=== PATIENT | female | born 1960 | race Caucasian/White ===

== ENCOUNTER 2017-03-26 20:45 | Emergency (ER) | payer BC ==
--- NOTE | 2017-03-26 20:49 | EDM.PDOC ---
ED HPI GENERAL MEDICAL PROBLEM - General Chief Complaint: Chest Pain Stated Complaint: [facility] Time Seen by Provider: 03/26/17 20:49 - History of Present Illness INITIAL COMMENTS - FREE TEXT/NARRATIVE: 56-year-old female presents emergency room with chest pain. She is brought in by EMS. Patient's pain started around 6:30 this evening the patient was resting and had this pain that started between her shoulder blades and radiated to the front of her chest and into the substernal area she had pain that radiated into the neck and briefly into the left jaw she did not have pain radiating into her arms she had some nausea with this mild diaphoresis. Patient has a history of type 2 diabetes hypertension and hyperlipidemia she's been off her hypertension and hyperlipidemia medications since the spring because of cost she has been taking a baby aspirin and her metformin however. With the onset of the chest pain the patient did take 325 mg of aspirin The patient used to smoke she quit no 5 however she had a relapse year or 2 ago for a brief period but didn't quit again. Family history is remarkable for a mom with high blood pressure and at some point she did have a heart attack but the patient is not too familiar with the details. Patient is not aware of her father's family history. Middle Chest Pain Score (Numeric/FACES): 4 - Related Data Allergies Allergy/AdvReac Type Severity Reaction Status Date / Time hydrochlorothiazide AdvReac Muscle Verified 03/26/17 20:51 Aches losartan [Losartan] AdvReac Muscle Verified 03/26/17 20:51 Aches Home Meds: Home Meds Aspirin [Halfprin] 81 mg PO DAILY 04/17/14 [History] metFORMIN [Glucophage] 500 mg PO BIDAC 04/17/14 [History] Esomeprazole Magnesium [Nexium] 40 mg PO DAILY 03/26/17 [History] Social & Family History - Tobacco Use Smoking Status *Q: Former Smoker - Alcohol Use Days Per Week of Alcohol Use: 0 Number of Drinks Per Day: 0 Total Drinks Per Week: 0 - Recreational Drug Use Recreational Drug Use: No Drug Use in Last 12 Months: No ED ROS GENERAL - Review of Systems Review Of Systems: See Below Constitutional: Reports: No Symptoms HEENT: Reports: No Symptoms Respiratory: Reports: No Symptoms Cardiovascular: Reports: Chest Pain. Denies: Edema, Palpitations Endocrine: Reports: No Symptoms GI/Abdominal: Reports: Nausea. Denies: No Symptoms, Abdominal Pain, Vomiting : Reports: No Symptoms Neurological: Reports: No Symptoms ED EXAM, GENERAL - Physical Exam Exam: See Below Exam Limited By: No Limitations General Appearance: Alert, No Apparent Distress Ear Exam: Right Ear: TM normal Head: Atraumatic, Normocephalic Neck: Normal Inspection, Supple, Non-Tender, Full Range of Motion, Other (No JVD ). No: Lymphadenopathy (L), Lymphadenopathy (R) Respiratory/Chest: No Respiratory Distress, Lungs Clear, Normal Breath Sounds Cardiovascular: Regular Rate, Rhythm, No Edema, No Murmur GI/Abdominal: Normal Bowel Sounds, Soft, Non-Tender, Other (He has a large midabdominal hernia). No: Distended, Guarding, Rigid, Rebound Neurological: Alert, Oriented, Normal Cognition Skin Exam: Warm, Dry, Intact, Normal Color EKG INTERPRETATION EKG Date: 03/26/17 Rhythm: NSR [place]: Normal P-Wave: Present QRS: Other (Poor R wave progression could be due to body habitus) ST-T: Other (Nonspecific nondiagnostic changes) QT: Normal Comparison: NA - No Prior EKG Course - Vital Signs Last Recorded V/S: Last Vital Signs Temp 35.9 C 03/26/17 20:46 Pulse 96 03/26/17 20:46 Resp 16 03/26/17 20:46 BP 143/65 H 03/26/17 21:10 Pulse Ox 97 03/26/17 20:46 - Orders/Labs/Meds Orders: Active Orders 24 hr Category Date Time Status Chest 1V Frontal [CR] Stat Exams 03/26/17 21:00 Taken Nitroglycerin [Nitrostat] Med 03/26/17 21:02 Active 0.4 mg SL Q5M PRN Sodium Chloride 0.9% [Normal Saline] 1,000 ml Med 03/26/17 21:15 Active IV ASDIRECTED Medication Orders Sodium Chloride (Normal Saline) 1,000 mls @ 50 mls/hr IV ASDIRECTED TOMMIE Last Admin: 03/26/17 21:09 Dose: 50 mls/hr Nitroglycerin (Nitrostat) 0.4 mg SL Q5M PRN PRN Reason: Chest Pain Last Admin: 03/26/17 21:10 Dose: 0.4 mg Labs: Laboratory Tests 03/26/17 03/26/17 03/26/17 Range/Units 21:00 21:00 21:00 WBC 15.11 H (3.98-10.04) K/mm3 RBC 5.11 (3.98-5.22) M/mm3 Hgb 13.0 (11.2-15.7) gm/L Hct 39.9 (34.1-44.9) % MCV 78.1 L (79.4-94.8) fl MCH 25.4 L (25.6-32.2) pg MCHC 32.6 (32.2-35.5) g/dl RDW Std Deviation 41.6 (36.4-46.3) fL Plt Count 371 H (182-369) K/mm3 MPV 10.3 (9.4-12.3) fl Neutrophils % (Manual) 81 H (40-60) % Band Neutrophils % 0 (0-10) % Lymphocytes % (Manual) 8 L (20-40) % Atypical Lymphs % 1 % Monocytes % (Manual) 3 (2-10) % Eosinophils % (Manual) 5 (0.7-5.8) % Basophils % (Manual) 2 H (0.1-1.2) Platelet Estimate Adequate Plt Morphology Comment Normal RBC Morph Comment Normal PT 9.5 (8.0-13.0) SECONDS INR 0.88 APTT 26 (22-36) SECONDS Sodium 141 (136-145) mEq/L Potassium 4.4 (3.5-5.1) mEq/L Chloride 105 (98-107) mEq/L Carbon Dioxide 26 (21-32) mEq/L Anion Gap 14.4 (5-15) BUN 19 H (7-18) mg/dL Creatinine 1.1 H (0.55-1.02) mg/dL Est Cr Clr Drug Dosing 47.24 mL/min Estimated GFR (MDRD) 51 (>60) mL/min BUN/Creatinine Ratio 17.3 (14-18) Glucose 148 H (74-106) mg/dL Calcium 9.2 (8.5-10.1) mg/dL Total Bilirubin 0.5 (0.2-1.0) mg/dL AST 51 H (15-37) U/L ALT 43 (14-59) U/L Alkaline Phosphatase 88 (46-116) U/L Troponin I < 0.017 (0.00-0.056) ng/mL Total Protein 7.5 (6.4-8.2) g/dl Albumin 3.2 L (3.4-5.0) g/dl Globulin 4.3 gm/dL Albumin/Globulin Ratio 0.7 L (1-2) 11/24/17 Range/Units 23:24 WBC (3.98-10.04) K/mm3 RBC (3.98-5.22) M/mm3 Hgb (11.2-15.7) gm/L Hct (34.1-44.9) % MCV (79.4-94.8) fl MCH (25.6-32.2) pg MCHC (32.2-35.5) g/dl RDW Std Deviation (36.4-46.3) fL Plt Count (182-369) K/mm3 MPV (9.4-12.3) fl Neutrophils % (Manual) (40-60) % Band Neutrophils % (0-10) % Lymphocytes % (Manual) (20-40) % Atypical Lymphs % % Monocytes % (Manual) (2-10) % Eosinophils % (Manual) (0.7-5.8) % Basophils % (Manual) (0.1-1.2) Platelet Estimate Plt Morphology Comment RBC Morph Comment PT (8.0-13.0) SECONDS INR APTT (22-36) SECONDS Sodium (136-145) mEq/L Potassium (3.5-5.1) mEq/L Chloride (98-107) mEq/L Carbon Dioxide (21-32) mEq/L Anion Gap (5-15) BUN (7-18) mg/dL Creatinine (0.55-1.02) mg/dL Est Cr Clr Drug Dosing mL/min Estimated GFR (MDRD) (>60) mL/min BUN/Creatinine Ratio (14-18) Glucose (74-106) mg/dL Calcium (8.5-10.1) mg/dL Total Bilirubin (0.2-1.0) mg/dL AST (15-37) U/L ALT (14-59) U/L Alkaline Phosphatase (46-116) U/L Troponin I < 0.017 (0.00-0.056) ng/mL Total Protein (6.4-8.2) g/dl Albumin (3.4-5.0) g/dl Globulin gm/dL Albumin/Globulin Ratio (1-2) Meds: Medications Generic Name Dose Route Start Last Admin Trade Name Freq PRN Reason Stop Dose Admin Sodium Chloride 1,000 mls @ 50 mls/hr 03/26/17 21:15 03/26/17 21:09 Normal Saline IV 50 mls/hr ASDIRECTED TOMMIE Administration Nitroglycerin 0.4 mg 03/26/17 21:02 03/26/17 21:10 Nitrostat SL 0.4 mg Q5M PRN Administration Chest Pain - Re-Assessments/Exams Free Text/Narrative Re-Assessment/Exam: 03/26/17 23:11 Patient is doing much better at this point. She received a single nitroglycerin her pain was about a 2 shortly after admission and she's been for the most part pain-free ever since her EKG shows no acute changes troponin is negative. Chest x-ray no acute changes. Discussed admission patient is not willing to pursue this at this time however she is in agreement checking a second troponin we've also discussed outpatient stress testing. 03/27/17 00:58 Second troponin negative patient still insistent on going home she's been symptom-free. She still in agreement to getting a outpatient stress test done and will follow up with her regular provider early this next week Departure - Departure Time of Disposition: 00:58 Disposition: Home, Self-Care 01 Clinical Impression: Chest pain Forms: ED Department Discharge Additional Instructions: Return to emergency room if any questions problems worsening symptoms. Follow-up with your regular provider on Wednesday or Wednesday. Discuss getting back on your routine medications. Get the stress test done that we discussed. Follow-up again with your regular provider after this is done to get the results. - My Orders Last 24 Hours: My Active Orders 03/26/17 21:00 Chest 1V Frontal [CR] Stat 03/26/17 21:02 Nitroglycerin [Nitrostat] 0.4 mg SL Q5M PRN 03/26/17 21:15 Sodium Chloride 0.9% [Normal Saline] 1,000 ml IV ASDIRECTED - Assessment/Plan Last 24 Hours: My Active Orders 03/26/17 21:00 Chest 1V Frontal [CR] Stat 03/26/17 21:02 Nitroglycerin [Nitrostat] 0.4 mg SL Q5M PRN 03/26/17 21:15 Sodium Chloride 0.9% [Normal Saline] 1,000 ml IV ASDIRECTED
[2017-03-26] MEDS ORDERED: Nitroglycerin 0.4 MG Tab.SL SL PRN (21:02)
[2017-03-26] MEDS ORDERED: Sodium Chloride 0.9% 1,000 ML IV SCH (21:15)
--- NOTE | 2017-03-29 16:01 | CR ---
Chest: Portable view of the chest was obtained. Comparison: No prior study. Heart size is normal. Mild tortuosity of the thoracic aorta is seen. Slightly full left side of the mediastinum is seen with mild displacement of the trachea to the right. Lungs are clear with no acute infiltrates. Bony structures are grossly intact. Impression: 1. Mediastinal fullness causing shift of the trachea to the right side. 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 Chest CT would be needed to confirm. 2. Nothing acute is otherwise seen on portable chest x-ray. Diagnostic code #9
== END 2017-03-27 01:25 | disposition home or self-care (01) ==
LOC: JD.ED 20:45
DX: R07.9 Chest pain, unspecified (principal); E11.9 Type 2 diabetes mellitus without complications; I10 Essential (primary) hypertension; E78.5 Hyperlipidemia, unspecified; Z87.891 Personal history of nicotine dependence; Z79.82 Long term (current) use of aspirin; Z79.899 Other long term (current) drug therapy; Z88.8 Allergy status to other drugs, medicaments and biological substances; Z79.84 Long term (current) use of oral hypoglycemic drugs
CPT/HCPCS: 36415; 71010; 80053; 84484; 85025; 85610; 85730; 96360; 96361; 99285; A9270; J7040; 93010; 99284

== ENCOUNTER 2017-11-05 18:17 | Emergency (ER) | payer BC ==
[2017-11-05] MEDS ORDERED: Sodium Chloride 0.9% 1,000 ML IV STA (19:20)
[2017-11-05] MEDS ORDERED: Sodium Chloride 0.9% 10 ML Syringe FLUSH PRN ×2 (19:20→20:27)
[2017-11-05] MEDS ORDERED: Metoclopramide 10 MG/2 ML SDV IVPUSH ONE (19:20)
--- NOTE | 2017-11-05 20:16 | EDM.PDOC ---
ED HPI GENERAL MEDICAL PROBLEM - General Chief Complaint: Abdominal Pain Stated Complaint: [facility] Time Seen by Provider: 11/05/17 18:53 Source of Information: Reports: Patient, EMS History Limitations: Reports: No Limitations - History of Present Illness INITIAL COMMENTS - FREE TEXT/NARRATIVE: The patient presents with abdominal pain, nausea and vomiting. She had surgery back in 2004 for an incarcerated hernia in [place]. They had to remove some of her bowel and they fixed the hernia with sutures. They did not use mesh. The hernia recurred shortly after that and she has been living with it. She will get pain from time to time but nothing that lasts long. Today she went out with her dogs and it was hot in the s. She got nauseated and thought it was the heat and then she had abdominal pain and vomiting and that made it worse. She now has constant abdominal pain near the hernia. She did get something for nausea and pain on the way here from [facility]. Her pain is better but she still has some nausea. She has no fever, chills, cough, chest pain or shortness of breath. She has no diarrhea or dysuria. Onset: Sudden Duration: Hour(s): Location: Reports: Abdomen Quality: Reports: Sharp Severity: Moderate Improves with: Reports: None Worsens with: Reports: None Associated Symptoms: Reports: Nausea/Vomiting. Denies: Chest Pain, Cough, Fever /Chills, Headaches, Shortness of Breath Treatments PHYSICAL EDUCATION PROFESSOR: Reports: Other (see below) Other Treatments PHYSICAL EDUCATION PROFESSOR: fentanyl,phenergan,zofran Abdomen Pain Score (Numeric/FACES): 5 - Related Data Allergies Allergy/AdvReac Type Severity Reaction Status Date / Time hydrochlorothiazide AdvReac Muscle Verified 03/26/17 20:51 Aches losartan [Losartan] AdvReac Muscle Verified 03/26/17 20:51 Aches Home Meds: Home Meds Aspirin [Halfprin] 81 mg PO DAILY 04/17/14 [History] metFORMIN [Glucophage] 500 mg PO BIDAC 04/17/14 [History] Esomeprazole Magnesium [Nexium] 40 mg PO DAILY 03/26/17 [History] Calcium Carbonate/Vitamin D3 [Calcium 1,000 + D3 Caplet] 1 tab PO BID 11/05/17 [ History] Escitalopram [Lexapro] 10 mg PO DAILY 11/05/17 [History] Fexofenadine [Zulma] 180 mg PO DAILY 11/05/17 [History] Lisinopril [Prinivil] 10 mg PO DAILY 11/05/17 [History] Meloxicam 5 mg PO DAILY 11/05/17 [History] Metoprolol Succinate 25 mg PO DAILY 11/05/17 [History] Omeprazole 0 mg PO DAILY 11/05/17 [History] [place] Natural Water Pill 11/05/17 [History] amLODIPine [Norvasc] 10 mg PO DAILY 11/05/17 [History] atorvaSTATin [Lipitor] 20 mg PO BEDTIME 11/05/17 [History] Past Medical History Cardiovascular History: Reports: High Cholesterol, Hypertension Gastrointestinal History: Reports: Hiatal Hernia Endocrine/Metabolic History: Reports: Diabetes, Type II - Past Surgical History GI Surgical History: Reports: Hernia, Abdominal Social & Family History - Family History Cardiac: Reports: MS Endocrine/Metabolic: Reports: Diabetes, type II - Tobacco Use Smoking Status *Q: Former Smoker Used Tobacco, but Quit: Yes Month/Year Tobacco Last Used: 2004 - Caffeine Use Caffeine Use: Reports: Coffee - Recreational Drug Use Recreational Drug Use: No ED ROS GENERAL - Review of Systems Review Of Systems: See Below Constitutional: Reports: No Symptoms HEENT: Reports: No Symptoms Respiratory: Reports: No Symptoms Cardiovascular: Reports: No Symptoms Endocrine: Reports: No Symptoms GI/Abdominal: Reports: Abdominal Pain, Nausea, Vomiting. Denies: Diarrhea : Reports: No Symptoms Musculoskeletal: Reports: No Symptoms Skin: Reports: No Symptoms Neurological: Reports: No Symptoms ED EXAM, GI/ABD - Physical Exam Exam: See Below Exam Limited By: No Limitations General Appearance: Alert, No Apparent Distress Ears: Normal External Exam Nose: Normal Inspection Head: Atraumatic, Normocephalic Neck: Normal Inspection Respiratory/Chest: No Respiratory Distress, Lungs Clear, Normal Breath Sounds Cardiovascular: Regular Rate, Rhythm, No Edema, No Murmur GI/Abdominal Exam: Soft, Other (Large ventral hernia with pain upon palpation) Course - Vital Signs Last Recorded V/S: Last Vital Signs Temp 96.5 F 11/05/17 18:36 Pulse 82 11/05/17 18:36 Resp 20 11/05/17 18:36 BP 129/62 11/05/17 18:36 Pulse Ox 92 L 11/05/17 18:36 - Orders/Labs/Meds Orders: Active Orders 24 hr Category Date Time Status Peripheral IV Care [RC] . DIRECTED Care 11/05/17 19:22 Active Abdomen Pelvis w Cont [CT] Stat Exams 11/05/17 19:20 Taken UA W/MICROSCOPIC [URIN] Stat Lab 11/05/17 19:58 Ordered Sodium Chloride 0.9% [Saline Flush] Med 11/05/17 19:20 Active 10 ml FLUSH ASDIRECTED PRN Sodium Chloride 0.9% [Saline Flush] Med 11/05/17 20:27 Active 10 ml FLUSH ONETIME PRN ED Antiemetic Medication Reflex [OM.PC] Stat Oth 11/05/17 19:22 Ordered Peripheral IV Insertion Adult [OM.PC] Stat Oth 11/05/17 19:20 Ordered Medication Orders Sodium Chloride (Saline Flush) 10 ml FLUSH ASDIRECTED PRN PRN Reason: Keep Vein Open Last Admin: 11/05/17 19:33 Dose: 10 ml Sodium Chloride (Saline Flush) 10 ml FLUSH ONETIME PRN PRN Reason: IV FLUSH Last Admin: 11/05/17 20:54 Dose: 10 ml Labs: Laboratory Tests 11/05/17 11/05/17 11/05/17 Range/Units 19:50 19:50 19:58 WBC 14.07 H (3.98-10.04) K/mm3 RBC 5.41 H (3.98-5.22) M/mm3 Hgb 14.1 (11.2-15.7) gm/L Hct 43.3 (34.1-44.9) % MCV 80.0 (79.4-94.8) fl MCH 26.1 (25.6-32.2) pg MCHC 32.6 (32.2-35.5) g/dl RDW Std Deviation 42.8 (36.4-46.3) fL Plt Count 350 (182-369) K/mm3 MPV 10.3 (9.4-12.3) fl Neut % (Auto) 82.9 H (34.0-71.1) % Lymph % (Auto) 12.7 L (19.3-51.7) % [place] % (Auto) 3.2 L (4.7-12.5) % Eos % (Auto) 0.7 (0.7-5.8) Baso % (Auto) 0.1 (0.1-1.2) % Neut # (Auto) 11.67 H (1.56-6.13) K/mm3 Lymph # (Auto) 1.78 (1.18-3.74) K/mm3 [place] # (Auto) 0.45 H (0.24-0.36) K/mm3 Eos # (Auto) 0.10 (0.04-0.36) K/mm3 Baso # (Auto) 0.02 (0.01-0.08) K/mm3 Sodium 142 (136-145) mEq/L Potassium 4.6 (3.5-5.1) mEq/L Chloride 104 (98-107) mEq/L Carbon Dioxide 27 (21-32) mEq/L Anion Gap 15.6 H (5-15) BUN 21 H (7-18) mg/dL Creatinine 1.0 (0.55-1.02) mg/dL Est Cr Clr Drug Dosing 51.34 mL/min Estimated GFR (MDRD) 57 (>60) mL/min BUN/Creatinine Ratio 21.0 H (14-18) Glucose 144 H (74-106) mg/dL Calcium 9.4 (8.5-10.1) mg/dL Total Bilirubin 0.7 (0.2-1.0) mg/dL AST 19 (15-37) U/L ALT 38 (14-59) U/L Alkaline Phosphatase 96 (46-116) U/L Total Protein 8.1 (6.4-8.2) g/dl Albumin 3.6 (3.4-5.0) g/dl Globulin 4.5 gm/dL Albumin/Globulin Ratio 0.8 L (1-2) Lipase 113 (73-393) U/L Urine Color Yellow (Yellow) Urine Appearance Slt cloudy H (Clear) Urine pH 5.5 (5.0-8.0) Ur Specific [place] > or = 1.030 (1.005-1.030) Urine Protein Negative (Negative) Urine Glucose (UA) Negative (Negative) Urine Ketones 2+ H (Negative) Urine Occult Blood Negative (Negative) Urine Nitrite Negative (Negative) Urine Bilirubin Negative (Negative) Urine Urobilinogen 0.2 (0.2-1.0) Ur Leukocyte Esterase Negative (Negative) Urine RBC 0-5 (0-5) /hpf Urine WBC 0-5 (0-5) /hpf Ur Epithelial Cells 0-5 (0-5) /hpf Urine Bacteria Few (FEW) /hpf Urine Mucus Few (FEW) /hpf Meds: Medications Generic Name Dose Route Start Last Admin Trade Name Sharan PRN Reason Stop Dose Admin Sodium Chloride 10 ml 11/05/17 19:20 11/05/17 19:33 Saline Flush FLUSH 10 ml ASDIRECTED PRN Administration Keep Vein Open Sodium Chloride 10 ml 11/05/17 20:27 11/05/17 20:54 Saline Flush FLUSH 10 ml ONETIME PRN Administration IV FLUSH Discontinued Medications Generic Name Dose Route Start Last Admin Trade Name Freq PRN Reason Stop Dose Admin Diatrizoate Meglum/Diatrizoate Sod 90 ml 11/05/17 20:27 11/05/17 20:54 Gastrografin 37% PO 11/05/17 20:28 90 ml ONETIME ONE Administration Hydromorphone HCl 0.5 mg 11/05/17 22:11 Dilaudid IVPUSH 11/05/17 22:12 ONETIME ONE Sodium Chloride 1,000 mls @ 1,000 mls/hr 11/05/17 19:20 11/05/17 19:31 Normal Saline IV 11/05/17 20:19 1,000 mls/hr .BOLUS STA Administration Iopamidol 125 ml 11/05/17 20:27 11/05/17 20:52 Isovue-300 (61%) IVPUSH 11/05/17 20:28 125 ml ONETIME ONE Administration Metoclopramide HCl 10 mg 11/05/17 19:20 11/05/17 19:32 Reglan IVPUSH 11/05/17 19:21 10 mg ONETIME ONE Administration - Re-Assessments/Exams Free Text/Narrative Re-Assessment/Exam: 11/05/17 20:15 I ordered an IV NS 1L bolus, reglan 10mg IV, labs, UA and a CT of her abdomen and pelvis. 11/05/17 22:20 Her WBC was elevated at 14.07. Her CMP looks good. Her UA shows no UTI. Her CT shows a large ventral abdominal wall hernia which contains distal small bowel , cecum, and the proximal ascending colon with evidence of a component of small bowel obstruction at the level of the hernia. Colonic diverticulosis without evidence of diverticulitis. Mildly enlarged likely fatty infiltrated liver. She is having more pain so I ordered some dilaudid 0.5mg IV. I talked with our general surgeon and he was concerned that if she does not resolve this small bowel obstruction which she could he could not do the surgery here. He recommended I talk to [place] and transfer her there. I called [facility] in [place] and talked with Dr Faulkner the hospitalist group leader semiconductor processing and she accepted the patient. I will have an NG tube put in. Departure - Departure Time of Disposition: 22:25 Disposition: DC/Tfer to Acute Hospital 02 Condition: Poor Clinical Impression: Ventral hernia with bowel obstruction - Discharge Information Referrals: PCP,Not In Area [Primary Care Provider] - Forms: ED Department Discharge - My Orders Last 24 Hours: My Active Orders 11/05/17 19:20 Abdomen Pelvis w Cont [CT] Stat Sodium Chloride 0.9% [Saline Flush] 10 ml FLUSH ASDIRECTED PRN Peripheral IV Insertion Adult [OM.PC] Stat 11/05/17 19:22 Peripheral IV Care [RC] . DIRECTED ED Antiemetic Medication Reflex [OM.PC] Stat 11/05/17 19:58 UA W/MICROSCOPIC [URIN] Stat 11/05/17 20:27 Sodium Chloride 0.9% [Saline Flush] 10 ml FLUSH ONETIME PRN - Assessment/Plan Last 24 Hours: My Active Orders 11/05/17 19:20 Abdomen Pelvis w Cont [CT] Stat Sodium Chloride 0.9% [Saline Flush] 10 ml FLUSH ASDIRECTED PRN Peripheral IV Insertion Adult [OM.PC] Stat 11/05/17 19:22 Peripheral IV Care [RC] . DIRECTED ED Antiemetic Medication Reflex [OM.PC] Stat 11/05/17 19:58 UA W/MICROSCOPIC [URIN] Stat 11/05/17 20:27 Sodium Chloride 0.9% [Saline Flush] 10 ml FLUSH ONETIME PRN
[2017-11-05] MEDS ORDERED: Diatrizoate Meglumine/Diatrizoate Sodium 37% 120 ML Bottle PO ONE (20:27)
[2017-11-05] MEDS ORDERED: Iopamidol 612 MG/ML 150 ML Bottle IVPUSH ONE (20:27)
[2017-11-05] MEDS ORDERED: HYDROmorphone 0.5 MG/0.5 ML SYRINGE IVPUSH ONE (22:11)
[2017-11-05] MEDS ORDERED: Ondansetron 4 MG/2 ML SDV IVPUSH ONE (22:28)
[2017-11-05] MEDS ORDERED: Sodium Chloride 0.9% 1,000 ML IV SCH (22:30)
--- NOTE | 2017-11-08 11:15 | CT ---
CT abdomen and pelvis Technique: Multiple axial sections were obtained from above the dome of the diaphragm inferiorly through the pubic symphysis. Intravenous and oral contrast was utilized. Delayed images were obtained through the bladder. Comparison: No prior CT exam is available. Findings: Visualized lung bases show nothing acute. Small hiatal hernia is seen. Slightly diminished density noted within the liver most likely representing mild fatty infiltration. Gallbladder contains no calcified gallstones. Spleen appears within normal limits. Adrenal glands show no nodule. Pancreas appears within normal limits. Kidneys show symmetric contrast enhancement without hydronephrosis or mass. Aorta shows atherosclerotic change which continues into the iliac vessels without aneurysm. No retroperitoneal adenopathy or mesenteric abnormalities are seen. Anterior abdominal wall hernia is noted. Heart hernia contains both small bowel and colon. Small bowel proximal to the hernia is mildly dilated. Small bowel distal to the hernia appears more normal in caliber. Hernia felt to cause slight partial small bowel obstruction. Hernia opening is approximately 8.4 cm. Diffuse diverticuli are seen throughout the colon. No free fluid or inflammatory change seen. No pelvic mass or adenopathy is noted. Delayed images show contrast within the distal ureter and within the bladder. Bone window setting shows scattered degenerative change throughout the spine. Impression: 1. Anterior abdominal wall hernia containing colon and small bowel. Proximal small bowel is slightly dilated and hernia is felt to cause a mild partial small bowel obstruction. 2. Other incidental findings as described above. Diagnostic code #3 I agree with preliminary report from [facility], finalized at 11/05/17, 10:37 PM Central Time
== END 2017-11-05 22:54 ==
LOC: JD.ED 18:17
DX: K43.6 Other and unspecified ventral hernia with obstruction, without gangrene (principal); E78.00 Pure hypercholesterolemia, unspecified; I10 Essential (primary) hypertension; E11.9 Type 2 diabetes mellitus without complications; Z79.82 Long term (current) use of aspirin; Z88.8 Allergy status to other drugs, medicaments and biological substances; Z79.84 Long term (current) use of oral hypoglycemic drugs; Z79.899 Other long term (current) drug therapy; Z87.891 Personal history of nicotine dependence
CPT/HCPCS: 36415; 74177; 80053; 81001; 82962; 83690; 85025; 96361; 96374; 96375; 99285; J1170; J2405; J2765; J7040; J7050; Q9963; Q9967

== ENCOUNTER 2017-12-25 22:57 | Emergency (ER) | payer BC ==
[2017-12-25] MEDS ORDERED: HYDROmorphone 1 MG/ML Syringe IVPUSH ONE (23:08)
[2017-12-25] MEDS ORDERED: Lidocaine 2% Jelly 10 ML Urojet MUCMEM ONE (23:19)
--- NOTE | 2017-12-25 23:39 | EDM.PDOC ---
ED HPI GENERAL MEDICAL PROBLEM - General Chief Complaint: Abdominal Pain Stated Complaint: [facility] ambulance Time Seen by Provider: 12/25/17 22:59 Source of Information: Reports: Patient History Limitations: Reports: No Limitations - History of Present Illness INITIAL COMMENTS - FREE TEXT/NARRATIVE: This is a 57-year-old female. Around 4:30 this evening after she got home from shopping she had onset of midline abdominal pain where she has her ventral hernia. He had a ventral hernia for quite some time due to a previous surgery some years ago. About 45 days ago she had a incarcerated hernia in that same place that was eventually relieved by in G suction and they were supposed to repair that hernia but her car broke down and she could not follow up with a surgeon at [facility] in [place]. She was seeing a Dr. Carrillo who was going to do the surgery. This evening once the pain started around 4:30 she did take some MiraLAX and apple juice hoping to "relieve" what she thought might be an early obstruction but it did not help. The pain and the hardness in the hernia area has just gotten worse. She had onset of nausea and vomiting and with the severe pain she called the ambulance and comes to the ER. She did receive some Zofran and fentanyl in the ambulance but it didn't seem to help much. The patient states she is not vomiting up stool type vomitus at this time. She denies any fever or chills. She's had no recent illnesses. She denies any urinary tract type symptoms. Treatments [employer]: Reports: IV/IO, Other (see below) Other Treatments [employer]: fentanyl, benadryl, zofran "Hernia" Pain Score (Numeric/FACES): 7 back Pain Score (Numeric/FACES): 6 - Related Data Allergies Allergy/AdvReac Type Severity Reaction Status Date / Time hydrochlorothiazide AdvReac Muscle Verified 12/25/17 23:07 Aches losartan [Losartan] AdvReac Muscle Verified 12/25/17 23:07 Aches Home Meds: Home Meds Aspirin [Halfprin] 81 mg PO DAILY 04/17/14 [History] metFORMIN [Glucophage] 500 mg PO BIDAC 04/17/14 [History] Esomeprazole Magnesium [Nexium] 40 mg PO DAILY 03/26/17 [History] Calcium Carbonate/Vitamin D3 [Calcium 1,000 + D3 Caplet] 1 tab PO BID 11/05/17 [ History] Escitalopram [Lexapro] 10 mg PO DAILY 11/05/17 [History] Fexofenadine [Zulma] 180 mg PO DAILY 11/05/17 [History] Lisinopril [Prinivil] 10 mg PO DAILY 11/05/17 [History] Meloxicam 5 mg PO DAILY 11/05/17 [History] Metoprolol Succinate 25 mg PO DAILY 11/05/17 [History] Omeprazole 0 mg PO DAILY 11/05/17 [History] Hooppole Natural Water Pill 11/05/17 [History] amLODIPine [Norvasc] 10 mg PO DAILY 11/05/17 [History] atorvaSTATin [Lipitor] 20 mg PO BEDTIME 11/05/17 [History] Past Medical History HEENT History: Reports: Impaired Vision Cardiovascular History: Reports: High Cholesterol, Hypertension Gastrointestinal History: Reports: Bowel Obstruction, Hiatal Hernia Musculoskeletal History: Reports: Back Pain, Chronic Endocrine/Metabolic History: Reports: Diabetes, Type II - Past Surgical History GI Surgical History: Reports: Hernia, Abdominal Social & Family History - Family History Family Medical History: Noncontributory Cardiac: Reports: ID Endocrine/Metabolic: Reports: Diabetes, type II - Tobacco Use Smoking Status *Q: Former Smoker Used Tobacco, but Quit: No - Caffeine Use Caffeine Use: Reports: Coffee - Recreational Drug Use Recreational Drug Use: No ED ROS GENERAL - Review of Systems Review Of Systems: See Below Constitutional: Denies: Fever, Chills HEENT: Reports: No Symptoms Respiratory: Denies: Shortness of Breath, Wheezing Cardiovascular: Denies: Chest Pain Endocrine: Reports: No Symptoms GI/Abdominal: Reports: Abdominal Pain, Nausea, Vomiting. Denies: Flatus : Reports: No Symptoms Musculoskeletal: Reports: No Symptoms Skin: Reports: No Symptoms Neurological: Reports: No Symptoms Psychiatric: Reports: Anxiety Hematologic/Lymphatic: Reports: No Symptoms ED EXAM, GI/ABD - Physical Exam Exam: See Below Exam Limited By: No Limitations General Appearance: Alert, WD/WN, Moderate Distress Eyes: Bilateral: Normal Appearance Ears: Normal External Exam Nose: Normal Inspection Throat/Mouth: Normal Inspection, Normal Lips, Normal Voice, No Airway Compromise Head: Normocephalic Neck: Supple Respiratory/Chest: No Respiratory Distress, Lungs Clear, Normal Breath Sounds Cardiovascular: Regular Rate, Rhythm, No Murmur, Tachycardia GI/Abdominal Exam: Distended, Guarding, Rigid, Tender, Other (Above the umbilicus there is a very large mound it is rigid and tender it is about 25 cm x 25 cm in size. It is very hard and I am not willing at this time to try to reduce it because she is under severe pain. The upper abdomen is less tender than where the hernia is. It is a midline ventral hernia above the umbilicus.) Back Exam: Decreased Range of Motion Extremities: Normal Inspection, Normal Range of Motion, No Pedal Edema Neurological: Alert, Oriented Psychiatric: Anxious Skin Exam: Warm, Dry Course - Vital Signs Last Recorded V/S: Last Vital Signs Temp 97.4 F 12/25/17 23:01 Pulse 100 12/25/17 23:01 Resp 22 H 12/25/17 23:01 BP 147/86 H 12/25/17 23:01 Pulse Ox 93 L 12/25/17 23:01 - Orders/Labs/Meds Orders: Active Orders 24 hr Category Date Time Status Abdomen Pelvis w Cont [CT] Stat Exams 12/25/17 23:09 Taken Nasogastric Orogastric Tube Insertion [OM.PC] Routine Oth 12/25/17 23:08 Ordered Labs: Laboratory Tests 12/25/17 12/25/17 Range/Units 23:00 23:00 WBC 17.28 H (3.98-10.04) K/mm3 RBC 5.05 (3.98-5.22) M/mm3 Hgb 13.9 (11.2-15.7) gm/L Hct 41.0 (34.1-44.9) % MCV 81.2 (79.4-94.8) fl MCH 27.5 (25.6-32.2) pg MCHC 33.9 (32.2-35.5) g/dl RDW Std Deviation 43.0 (36.4-46.3) fL Plt Count 367 (182-369) K/mm3 MPV 10.1 (9.4-12.3) fl Neut % (Auto) 85.2 H (34.0-71.1) % Lymph % (Auto) 10.5 L (19.3-51.7) % Wolfe % (Auto) 3.2 L (4.7-12.5) % Eos % (Auto) 0.7 (0.7-5.8) Baso % (Auto) 0.1 (0.1-1.2) % Neut # (Auto) 14.70 H (1.56-6.13) K/mm3 Lymph # (Auto) 1.82 (1.18-3.74) K/mm3 Wolfe # (Auto) 0.56 H (0.24-0.36) K/mm3 Eos # (Auto) 0.12 (0.04-0.36) K/mm3 Baso # (Auto) 0.02 (0.01-0.08) K/mm3 Manual Slide Review Normal smear Sodium 140 (136-145) mEq/L Potassium 4.1 (3.5-5.1) mEq/L Chloride 104 (98-107) mEq/L Carbon Dioxide 24 (21-32) mEq/L Anion Gap 16.1 H (5-15) BUN 21 H (7-18) mg/dL Creatinine 1.0 (0.55-1.02) mg/dL Est Cr Clr Drug Dosing 51.34 mL/min Estimated GFR (MDRD) 57 (>60) mL/min BUN/Creatinine Ratio 21.0 H (14-18) Glucose 184 H (74-106) mg/dL Calcium 9.3 (8.5-10.1) mg/dL Total Bilirubin 0.8 (0.2-1.0) mg/dL AST 18 (15-37) U/L ALT 27 (14-59) U/L Alkaline Phosphatase 89 (46-116) U/L Total Protein 7.9 (6.4-8.2) g/dl Albumin 3.6 (3.4-5.0) g/dl Globulin 4.3 gm/dL Albumin/Globulin Ratio 0.8 L (1-2) Lipase 106 (73-393) U/L Meds: Medications Discontinued Medications Generic Name Dose Route Start Last Admin Trade Name Freq PRN Reason Stop Dose Admin Hydromorphone HCl 1 mg 12/25/17 23:08 12/25/17 23:13 Dilaudid IVPUSH 12/25/17 23:09 1 mg ONETIME ONE Administration Iopamidol 100 ml 12/25/17 23:48 12/25/17 23:53 Isovue-300 (61%) IVPUSH 12/25/17 23:49 100 ml ONETIME ONE Administration Lidocaine HCl 10 ml 12/25/17 23:19 12/26/17 00:55 Xylocaine 2% Jelly MUCMEM 12/25/17 23:20 10 ml ONETIME ONE Administration - Radiology Interpretation Free Text/Narrative:: DT scan of the abdomen with IV contrast shows a large ventral hernia containing multiple loops of bowel and these are small intestine line leading up to the hernia and there is a single loop of bowel within the hernia is dilated. Everything else appears to be normal. - Re-Assessments/Exams Free Text/Narrative Re-Assessment/Exam: 12/26/17 01:46 Spoke to the patient regarding the findings of the CT scan and that she needs to have her small bowel removed from the ventral hernia and since yard he sees Dr. Carrillo at [facility] in [facility] I will call them for a transfer. She is good with this. 12/26/17 01:[address] Longo who was the general surgeon on for Dr. Carrillo and he agrees to accept the patient in transport for further evaluation and treatment. The patient will be first seen in the emergency department and then he will be called from there. I spoke to the family regarding these arrangements and they are good with this. 12/26/17 01:47 Repeat exam of the patient with the NG tube in place reveals still a hard knot of the hernia however it appears to be less super tense than it was prior to the NG tube. She also has still some twinges of pain in that area but it is better as well and her nausea is better. Departure - Departure Time of Disposition: 02:37 Disposition: DC/Tfer to Acute Hospital 02 Condition: Fair Clinical Impression: Incarcerated ventral hernia, Small bowel obstruction, Continuous severe abdominal pain Nausea and vomiting Qualifiers: Vomiting type: unspecified Vomiting Intractability: non-intractable Qualified Code(s): R11.2 - Nausea with vomiting, unspecified - Discharge Information *PRESCRIPTION DRUG MONITORING PROGRAM REVIEWED*: Not Applicable *COPY OF PRESCRIPTION DRUG MONITORING REPORT IN PATIENT FORTUNATO: Not Applicable Referrals: PCP,None [Primary Care Provider] - Forms: ED Department Discharge Additional Instructions: I spoke to Dr. Longo at [facility] and he agrees to accept the patient in transport for further evaluation and treatment. ED Communication - ED Communication Date/Time Date: 12/26/17 Time Called: 01:30 - Discussed Case With (1) Discussed Case With (1): Admitting Provider Person/s Notified (1): Dr. Longo (He agrees to accept the patient in transport) - My Orders Last 24 Hours: My Active Orders 12/25/17 23:08 Nasogastric Orogastric Tube Insertion [OM.PC] Routine 12/25/17 23:09 Abdomen Pelvis w Cont [CT] Stat - Assessment/Plan Last 24 Hours: My Active Orders 12/25/17 23:08 Nasogastric Orogastric Tube Insertion [OM.PC] Routine 12/25/17 23:09 Abdomen Pelvis w Cont [CT] Stat
[2017-12-25] MEDS ORDERED: Iopamidol 612 MG/ML 100 ML Bottle IVPUSH ONE (23:48)
--- NOTE | 2017-12-27 07:30 | CT ---
CT abdomen and pelvis Technique: Multiple axial sections were obtained from above the dome of the diaphragm inferiorly through the pubic symphysis. Intravenous contrast was utilized. Delayed images were obtained through the bladder. No oral contrast has been given. Comparison: Prior CT abdomen and pelvis exam of 11/05/17. Findings: Dilated small bowel loops are seen containing fluid. Anterior abdominal wall hernia is identified which contains small bowel. There is a loop of small bowel within this hernia showing anastomotic sutures. This hernia is felt to be causing small bowel obstruction. Visualized lung bases are clear. Liver shows mild fatty infiltration without focal abnormality being seen within the liver. Gallbladder contains no calcified gallstones. Spleen appears within normal limits. Adrenal glands show no nodule. Pancreas is within normal limits. Kidneys show symmetric contrast enhancement without hydronephrosis or mass. Aorta shows atherosclerotic change without aneurysmal dilatation. No retroperitoneal adenopathy or mesenteric abnormalities are seen. Numerous colonic diverticuli are seen. No inflammatory change is seen to indicate diverticulitis. No free fluid is seen. Bone window settings show scattered degenerative change within the spine. Delayed images show contrast within the distal ureters and bladder. Impression: 1. Large abdominal wall hernia containing multiple loops of small bowel. Proximal small bowel is dilated and this hernia is felt to be causing small bowel obstruction. This finding has worsened from prior exam. 2. Other incidental findings as noted above. Diagnostic code #3 I agree with preliminary report from [facility], finalized at 12/26/17, 1:24 AM Central Time
== END 2017-12-26 02:45 ==
LOC: JD.ED 22:57
DX: K43.6 Other and unspecified ventral hernia with obstruction, without gangrene (principal); E11.9 Type 2 diabetes mellitus without complications; I10 Essential (primary) hypertension; E78.00 Pure hypercholesterolemia, unspecified; Z79.82 Long term (current) use of aspirin; Z79.84 Long term (current) use of oral hypoglycemic drugs; Z79.899 Other long term (current) drug therapy; Z88.8 Allergy status to other drugs, medicaments and biological substances
CPT/HCPCS: 36415; 74177; 80053; 83690; 85025; 96374; 99285; J1170; Q9967

== ENCOUNTER 2022-03-09 21:16 | Emergency (ER) | payer BC, MEDICAID ==
[2022-03-09] MEDS ORDERED: Sodium Chloride 0.9% 10 ML Syringe FLUSH PRN (21:29)
[2022-03-09] MEDS ORDERED: Morphine 2 MG/ML SYRINGE IVPUSH ONE (21:30)
== END 2022-03-09 23:58 | disposition home or self-care (01) ==
LOC: JD.ED 21:16
DX: R07.89 Other chest pain (principal); I10 Essential (primary) hypertension; E11.9 Type 2 diabetes mellitus without complications; Z88.8 Allergy status to other drugs, medicaments and biological substances; Z79.899 Other long term (current) drug therapy; Z79.82 Long term (current) use of aspirin; Z79.84 Long term (current) use of oral hypoglycemic drugs
CPT/HCPCS: 36415; 71045; 80053; 84484; 85025; 85379; 93005; 96374; 99285; J2270; J3490

== ENCOUNTER 2022-08-26 08:15 | Emergency (ER) | payer BC, MEDICAID ==
[2022-08-26] MEDS ORDERED: Aspirin 81 MG Tab.Chew PO ONE (08:30)
[2022-08-26] MEDS ORDERED: Nitroglycerin 0.4 MG Tab.SL SL PRN (08:30)
[2022-08-26] MEDS ORDERED: Sodium Chloride 0.9% 1,000 ML IV SCH ×2 (08:45→16:15)
[2022-08-26] MEDS ORDERED: Iopamidol 755 Mg/ML 100 ML Bottle IVPUSH ONE (10:49)
[2022-08-26] MEDS ORDERED: Sodium Chloride 0.9% 10 ML Syringe FLUSH PRN (10:49)
[2022-08-26] MEDS ORDERED: Iopamidol 755 MG/ML 50 ML Bottle IVPUSH ONE (10:49)
[2022-08-26] MEDS ORDERED: Sodium Chloride 0.9% 100 ML IV SCH (11:00)
[2022-08-26] MEDS ORDERED: HYDROmorphone 0.5 MG/0.5 ML Syringe IVPUSH ONE ×2 (11:55→15:10)
[2022-08-26] MEDS ORDERED: Ondansetron 4 MG/2 ML SDV IVPUSH ONE (14:29)
== END 2022-08-26 18:10 ==
LOC: JD.ED 08:15
DX: K43.6 Other and unspecified ventral hernia with obstruction, without gangrene (principal); I48.91 Unspecified atrial fibrillation; I10 Essential (primary) hypertension; E78.00 Pure hypercholesterolemia, unspecified; J43.9 Emphysema, unspecified; K21.9 Gastro-esophageal reflux disease without esophagitis; E11.9 Type 2 diabetes mellitus without complications; E66.9 Obesity, unspecified; Z68.43 Body mass index [BMI] 50.0-59.9, adult; Z86.16 Personal history of COVID-19; Z88.8 Allergy status to other drugs, medicaments and biological substances; Z79.01 Long term (current) use of anticoagulants; Z79.84 Long term (current) use of oral hypoglycemic drugs; Z79.899 Other long term (current) drug therapy
CPT/HCPCS: 36415; 71045; 71275; 74177; 80053; 84484; 85025; 85379; 85610; 85730; 93005; 96374; 96375; 96376; 99285; J1170; J2405; J3490; Q9967; 93010; 99284

== ENCOUNTER 2023-02-18 14:32 | Day surgery (SDC) | payer BC ==
[2023-02-18] MEDS: Polymyxin B/Trimethoprim 10 ML Bottle EYERT SCH ×3 (12:18→13:54)
[2023-02-18] MEDS: Tropicamide 1% Ophth Soln 3 ML Bottle EYERT SCH ×5 (12:20→13:13)
[2023-02-18] MEDS: Brimonidine 0.2% Ophth Soln 5 ML Bottle EYERT SCH ×3 (12:24→13:54)
[2023-02-18] MEDS: Phenylephrine 2.5% Ophth Soln 2 ML Bot EYERT SCH ×5 (12:29→13:33)
[2023-02-18] MEDS: Tetracaine HCl/PF 0.5% 4 ML Bottle EYEBOTH SCH ×4 (13:25→13:33)
[~2023-02-18 14:32] MED LIST: Cefuroxime 10 MG/ML SYRINGE EYERT SCH; Lidocaine 1% PF 2 ML SDV INJECT SCH; Pilocarpine 4% Ophth Soln 15 ML Bot EYERT SCH
== END 2023-02-18 15:20 ==
LOC: JD.SDS 14:32
PROVIDERS: ATTEND Ophthalmology
DX: E11.36 Type 2 diabetes mellitus with diabetic cataract (principal); H25.813 Combined forms of age-related cataract, bilateral; F41.9 Anxiety disorder, unspecified; E78.00 Pure hypercholesterolemia, unspecified; F32.A Depression, unspecified; M19.90 Unspecified osteoarthritis, unspecified site; I48.91 Unspecified atrial fibrillation; I10 Essential (primary) hypertension; E07.9 Disorder of thyroid, unspecified; K21.9 Gastro-esophageal reflux disease without esophagitis; E66.9 Obesity, unspecified; Z83.518 Family history of other specified eye disorder; Z87.891 Personal history of nicotine dependence; Z79.899 Other long term (current) drug therapy; Z88.8 Allergy status to other drugs, medicaments and biological substances; Z79.84 Long term (current) use of oral hypoglycemic drugs; Z68.43 Body mass index [BMI] 50.0-59.9, adult
CPT/HCPCS: 66984; A9270; J0697; V2632; J3490

== ENCOUNTER 2023-11-07 09:52 | Inpatient (IN) | payer OTHER ==
[2023-11-07] MEDS: Aspirin 81 MG Tab.Chew PO ONE (10:21)
[2023-11-07 10:58] LABS: BASOPHILS ABSOLUTE AUTO 0.1 K/mm3 (0.0-0.2); BASOPHILS PERCENT AUTO 0.4 % (0.0-1.0); EOSINOPHILS ABSOLUTE AUTO 0.3 K/mm3 (0.0-0.4); EOSINOPHILS PERCENT AUTO 2.4 % (0.0-6.0); HEMOGLOBIN 12.7 gm/dl (12.0-16.0); IMMATURE GRAN ABSOLUTE AUTO 0.07 K/mm3 (0.00-0.05); IMMATURE GRAN PERCENT AUTO 0.6 % (0.0-0.4); LYMPHOCYTES ABSOLUTE AUTO 2.1 K/mm3 (1.0-4.8); MEAN CORPUSCULAR HEMOGLOBIN 24.7 pg (28.0-32.0); MEAN CORPUSCULAR VOLUME 79.8 fl (83.0-99.0); MEAN PLATELET VOLUME 10.2 fl (9.4-12.3); MONOCYTES ABSOLUTE AUTO 0.6 K/mm3 (0.0-0.8); MONOCYTES PERCENT AUTO 4.7 % (0.0-8.0); NEUTROPHILS ABSOLUTE AUTO 8.8 K/mm3 (1.8-7.7); NEUTROPHILS PERCENT AUTO 73.9 % (41.0-71.0); RED BLOOD CELL COUNT 5.14 M/mm3 (4.10-5.30); WHITE BLOOD CELL COUNT,WBC 11.92 K/mm3 (3.9-11.3)
[2023-11-07 11:00] LABS: PLATELET COUNT,PLT 361 K/mm3 (150-400)
[2023-11-07 11:22] LABS: INR 0.99; PROTHROMBIN TIME 10.5 SECONDS (9.7-12.0)
[2023-11-07 11:24] LABS: PTT,PARTIAL THROMBOPLSTIN TIME 25.1 SECONDS (21.7-31.4)
[2023-11-07 11:25] LABS: LACTIC ACID 1.2 mmol/L (0.4-2.0)
[2023-11-07 11:32] LABS: A/G RATIO 0.8 (1-2); ALBUMIN 3.3 g/dl (3.4-5.0); ANION GAP 15.5 (5-15); BILIRUBIN TOTAL 1.2 mg/dL (0.2-1.0); BUN/CREATININE RATIO 13.3 (14-18); CALCIUM 9.2 mg/dL (8.5-10.1); CREATININE 1.2 mg/dL (0.55-1.02); EST CRCL DRUG DOSING (CG) 43.18 mL/min; MAGNESIUM 1.5 mg/dL (1.8-2.4); PHOSPHORUS 3.7 mg/dL (2.6-4.7); POTASSIUM,K 3.5 mEq/L (3.5-5.1); PROTEIN TOTAL,TP 7.7 g/dl (6.4-8.2)
[2023-11-07 11:38] LABS: D-DIMER QUANTITATIVE 1.08 mg/L (0.19-0.50)
[2023-11-07 11:54] LABS: APPEARANCE,URINE CLEAR (Clear); BILIRUBIN,URINE NEGATIVE (Negative); COLOR,URINE YELLOW (Yellow); GLUCOSE,URINE NEGATIVE (Negative); KETONES,URINE 1+ (Negative); LEUKOCYTE ESTERASE,URINE NEGATIVE (Negative); NITRITE,URINE NEGATIVE (Negative); OCCULT BLOOD,URINE NEGATIVE (Negative); PROTEIN,URINE 1+ (Negative)
[2023-11-07 12:03] LABS: BACTERIA,URINE FEW /hpf (FEW); MUCUS,URINE RARE /hpf (FEW); RBC,URINE 0-5 /hpf (0-5); WBC,URINE 0-5 /hpf (0-5)
[2023-11-07] MEDS: Iopamidol 755 Mg/ML 100 ML Bottle IVPUSH ONE (12:57)
[2023-11-07] MEDS: Sodium Chloride 0.9% 100 ML IV SCH (12:57)
[2023-11-07] MEDS: Furosemide 40 MG/4 ML VIAL IVPUSH ONE (13:40)
[2023-11-07] MEDS: Magnesium Oxide 400 MG Tab PO ONE (15:11)
[2023-11-07] MEDS ORDERED: Sennosides/Docusate Sodium 50-8.6 MG Tab PO PRN (16:33)
[2023-11-07] MEDS: Heparin Sodium 5,000 Units/ML Vial IVPUSH ONE ×2 (16:42→19:27)
[2023-11-07] MEDS: Heparin Sodium/D5W 25,000 UNITS/500 ML BAG IV SCH (16:44)
[2023-11-07] MEDS: Metoprolol Tartrate 5 MG/5 ML SDV IVPUSH ONE (16:48)
[2023-11-07] MEDS ORDERED: 50% Dextrose in Water 50 ML Syringe IVPUSH PRN (17:18)
[2023-11-07] MEDS ORDERED: Labetalol 100 MG/20 ML MDV IVPUSH PRN (17:19)
[2023-11-07] MEDS ORDERED: Metoprolol Tartrate 5 MG/5 ML SDV IVPUSH PRN (17:21)
[2023-11-07] MEDS ORDERED: Magnesium Sulfate (4.06 MEQ/ML) 5 GM/10 ML SDV IV STA (17:26)
[2023-11-07 18:09] LABS: FERRITIN 56 ng/ml (8-252); IRON,FE 28 ug/dL (50-170); PERCENT FE SATURATION 8 % (20-55); TRANSFERRIN 267 mg/dL (202-364)
[2023-11-07 18:12] LABS: TOTAL IRON BINDING CAPACITY 334 ug/dL (100-400)
[2023-11-07 18:31] LABS: TSH 2.931 uIU/mL (0.358-3.74)
[2023-11-07 18:36] LABS: CORONAVIRUS COVID-19 NAA NEGATIVE (NEGATIVE)
[2023-11-07] MEDS: Insulin Lispro 100 Unit/ML 3 ML KwikPen SUBCUT SCH (18:43)
[2023-11-07] MEDS: Metoprolol Tartrate 25 MG Tab PO SCH (18:55)
[2023-11-07] MEDS: Potassium Chloride 20 MEQ Tab.ER PO ONE (18:56)
[2023-11-07] MEDS: atorvaSTATin 20 MG Tab PO SCH (18:56)
[2023-11-07] MEDS: amLODIPine 10 MG Tab PO SCH (18:56)
[2023-11-07] MEDS: cefTRIAXone 1 GM in Sodium Chloride 0.9% 100 ML IV SCH (18:57)
[2023-11-07] MEDS: Magnesium Sulfate/Water 2 GM in Premix Bag 1 BAG IV SCH (19:40)
[2023-11-07] MEDS: Doxycycline 100 MG in Sodium Chloride 0.9% 100 ML IV SCH (20:08)
[2023-11-07 20:25] LABS: INFLUENZA A NAA NEGATIVE (NEGATIVE); RESPIRATORY SYNCYTIAL VIR NAA NEGATIVE (NEGATIVE)
[2023-11-07] MEDS: Acetaminophen 325 MG Tab PO PRN (20:42)
[2023-11-07] MEDS: Melatonin 3 MG Tab PO PRN (21:31)
[2023-11-08] MEDS ORDERED: Heparin Sodium 5,000 Units/ML Vial IVPUSH ONE (00:17)
[2023-11-08] MEDS: Heparin Sodium 5,000 Units/ML Vial IV ONE ×2 (00:59→07:41)
[2023-11-08 06:18] LABS: BASOPHILS PERCENT AUTO 0.4 % (0.0-1.0); EOSINOPHILS ABSOLUTE AUTO 0.4 K/mm3 (0.0-0.4); EOSINOPHILS PERCENT AUTO 3.4 % (0.0-6.0); HEMATOCRIT 38.1 % (37.0-47.0); HEMOGLOBIN 11.9 gm/dl (12.0-16.0); IMMATURE GRAN ABSOLUTE AUTO 0.08 K/mm3 (0.00-0.05); IMMATURE GRAN PERCENT AUTO 0.8 % (0.0-0.4); LYMPHOCYTES ABSOLUTE AUTO 2.9 K/mm3 (1.0-4.8); LYMPHOCYTES PERCENT AUTO 28.2 % (24.0-44.0); MEAN CORPUSCULAR HEMOGLOBIN 24.8 pg (28.0-32.0); MEAN CORPUSCULAR HGB CONC 31.2 g/dl (32.0-36.0); MEAN CORPUSCULAR VOLUME 79.4 fl (83.0-99.0); MEAN PLATELET VOLUME 10.4 fl (9.4-12.3); MONOCYTES ABSOLUTE AUTO 0.6 K/mm3 (0.0-0.8); MONOCYTES PERCENT AUTO 5.6 % (0.0-8.0); NEUTROPHILS ABSOLUTE AUTO 6.4 K/mm3 (1.8-7.7); NEUTROPHILS PERCENT AUTO 61.6 % (41.0-71.0); PLATELET COUNT,PLT 376 K/mm3 (150-400)
[2023-11-08 06:36] LABS: A/G RATIO 0.7 (1-2); ALBUMIN 3.1 g/dl (3.4-5.0); ANION GAP 13.4 (5-15); BILIRUBIN TOTAL 1.2 mg/dL (0.2-1.0); CALCIUM 9.3 mg/dL (8.5-10.1); EST CRCL DRUG DOSING (CG) 51.81 mL/min; MAGNESIUM 2.3 mg/dL (1.8-2.4); PHOSPHORUS 4.4 mg/dL (2.6-4.7); POTASSIUM,K 4.4 mEq/L (3.5-5.1); PROTEIN TOTAL,TP 7.4 g/dl (6.4-8.2)
[2023-11-08] MEDS: Heparin Sodium 5,000 Units/ML Vial IVPUSH ONE (15:14)
[2023-11-08] MEDS: Acetaminophen 325 MG Tab PO PRN (17:15)
[2023-11-08 19:45] LABS: INR 1.01; PROTHROMBIN TIME 10.7 SECONDS (9.7-12.0)
[2023-11-08] MEDS: Doxycycline Monohydrate 100 MG Cap PO SCH (21:55)
[2023-11-09] MEDS: Warfarin 5 MG Tab PO ONE ×2 (01:11→01:35)
[2023-11-09] MEDS: Enoxaparin 150 MG/1 ML Syringe SUBCUT SCH (10:40)
== END 2023-11-09 15:15 | disposition home or self-care (01) | DRG 280 ==
LOC: JD.ED 09:52 → JD.MS 16:11 → OBSVTOIN 16:33
PROVIDERS: ADMIT Student in an Organized Health Care Education/Training Program; ATTEND Student in an Organized Health Care Education/Training Program
DX: I48.20 Chronic atrial fibrillation, unspecified (principal); A41.9 Sepsis, unspecified organism; I21.A1 Myocardial infarction type 2; J18.9 Pneumonia, unspecified organism; I50.23 Acute on chronic systolic (congestive) heart failure; R65.20 Severe sepsis without septic shock; N17.9 Acute kidney failure, unspecified; Z68.42 Body mass index [BMI] 45.0-49.9, adult; J44.0 Chronic obstructive pulmonary disease with (acute) lower respiratory infection; E78.5 Hyperlipidemia, unspecified; G89.29 Other chronic pain; I11.0 Hypertensive heart disease with heart failure; M54.50 Low back pain, unspecified; M19.90 Unspecified osteoarthritis, unspecified site; K21.9 Gastro-esophageal reflux disease without esophagitis; I49.9 Cardiac arrhythmia, unspecified; E66.9 Obesity, unspecified; G43.909 Migraine, unspecified, not intractable, without status migrainosus; F41.9 Anxiety disorder, unspecified; F32.A Depression, unspecified; E11.69 Type 2 diabetes mellitus with other specified complication; E86.0 Dehydration; E04.9 Nontoxic goiter, unspecified; R94.31 Abnormal electrocardiogram [ECG] [EKG]; Z88.4 Allergy status to anesthetic agent; E87.8 Other disorders of electrolyte and fluid balance, not elsewhere classified; Z88.8 Allergy status to other drugs, medicaments and biological substances; Z79.84 Long term (current) use of oral hypoglycemic drugs; Z86.16 Personal history of COVID-19; Z79.899 Other long term (current) drug therapy; Z87.891 Personal history of nicotine dependence; Z91.199 Patient's noncompliance with other medical treatment and regimen due to unspecified reason
CPT/HCPCS: 0241U; 36415; 71045; 71045-26; 71275; 71275-26; 80053; 81001; 82728; 82947; 83540; 83605; 83690; 83735; 83880; 84100; 84443; 84466; 84484; 85025; 85379; 85610; 85730; 86140; 87040; 87070; 87641; 87899; 93005; 93010; 93306; 94761; 94762; 96374; 97161-GP; 99223; 99232; 99239; 99285; 99285-25; A9270-GY; J0696; J1644; J1650; J1815; J1940; J3475; J3490; Q9967